=== PATIENT | male | born 1970 ===

== ENCOUNTER 2017-05-23 10:00 | Observation (INO) | payer BC, OTHER ==
[2017-05-23] MEDS ORDERED: TORAdol 30 mg Injection IV ONE (10:20)
[2017-05-23] MEDS ORDERED: VALIUM 10 MG/2 ML SYRINGE IV ONE ×2 (10:20→11:53)
[2017-05-23] MEDS ORDERED: DECADRON 10MG INJ. IV ONE (10:20)
[2017-05-23] MEDS ORDERED: TORAdol 30 mg Injection ONE (10:25)
[2017-05-23] MEDS ORDERED: VALIUM 10 MG/2 ML SYRINGE ONE ×2 (10:25→12:51)
--- NOTE | 2017-05-23 10:25 | ERPHSYRPT ---
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 Pt states he is having numbness in the RLE. Triage Nursing Assessment: Pt alert and oriented x3. skin pink warm and dry. afebrile. pt restless and appears to be in severe pain. no swelling or bruising noted to back Physician History: 47 y/o male comes to the ER in a wheelchair after lifting a heavy object at work just prior to arrival. Pt admits to having severe right lower back pain with severe stiffness. Pt describes the pain as sharp, constant, 10/10, with radiation down the right leg and pt has not taken any pain meds. Pt denies any fever, chills, leg weakness or bowel or urinary incontinence. Timing/Duration: today Method of Injury: bending Back Pain Location: lumbar spine, paraspinous muscles Back Pain Radiation: upper legs Severity of Pain-Max: severe Severity of Pain-Current: severe Modifying Factors: Improves With: nothing Allergies/Adverse Reactions: Penicillins Allergy (Verified 05/23/17 10:01) Home Medications: Hydrocodone Bit/Acetaminophen [[place] 5-325 Tablet] 1 each PO UD 05/23/17 [ History] Hx Tetanus, Diphtheria Vaccination/Date Given: Yes Hx Influenza Vaccination/Date Given: Yes Hx Pneumococcal Vaccination/Date Given: Yes - Review of Systems Constitutional: No Fever, No Chills Eyes: No Symptoms Ears, Nose, & Throat: No Symptoms Respiratory: No Cough, No Dyspnea Cardiac: No Chest Pain, No Edema, No Syncope Abdominal/Gastrointestinal: No Abdominal Pain, No Nausea, No Vomiting, No Diarrhea Genitourinary Symptoms: No Dysuria, No Incontinence, No Urgency Musculoskeletal: Back Pain, No Neck Pain Skin: No Symptoms, No Rash Neurological: No Dizziness, No Focal Weakness, No Sensory Changes Psychological: No Symptoms Endocrine: No Symptoms All Other Systems: Reviewed and Negative - Past Medical History Pertinent Past Medical History: Yes Cardiac History: Hypertension - Past Surgical History Past Surgical History: Yes Gastrointestinal: Hernia Repair Musculoskeletal: Orthopedic Surgery - Social History Smoking Status: Former smoker Exposure to second hand smoke: No Drug Use: none Patient Lives Alone: No - Nursing Vital Signs Nursing Vital Signs: Initial Vital Signs Temperature 98.2 F Pulse Rate 86 Respiratory Rate 16 Blood Pressure [Right Arm] 135/84 Pain Intensity 9 - Physical Exam General Appearance: no apparent distress, alert Eye Exam: PERRL/EOMI, eyes nml inspection Neck Exam: normal inspection, non-tender, supple, full range of motion, No meningismus, No midline tenderness Respiratory Exam: normal breath sounds, lungs clear, No respiratory distress Cardiovascular Exam: regular rate/rhythm, normal heart sounds Gastrointestinal Exam: soft, No tenderness, No mass Back Exam: decreased range of motion, muscle spasm, point tenderness (right paraspinal tenderness), No vertebral tenderness Extremity Exam: normal inspection, normal range of motion, No calf tenderness, No pedal edema Neurologic Exam: alert, oriented x 3, cooperative, staffing manager II-XII nml as tested, normal mood/affect, nml station & gait, sensation nml, No motor deficits Skin Exam: normal color, warm, dry, No rash SpO2: 98 Oxygen Delivery: Room Air - Course Nursing assessment & vital signs reviewed: Yes Ordered Tests: Active Orders 24 hr Category Date Time Status IV Insertion STAT Care 05/23/17 10:19 Active LUMBAR SPINE W/O [CT] Stat Exams 05/23/17 11:56 Completed Medication Summary Discontinued Medications Generic Name Dose Route Start Last Admin Trade Name Bob PRN Reason Stop Dose Admin Dexamethasone Sodium Phosphate 10 mg 05/23/17 10:20 05/23/17 10:31 Decadron 10mg Inj. IV 05/23/17 10:21 10 mg STAT ONE Administration Dexamethasone Sodium Phosphate Confirm 05/23/17 10:26 Decadron 10mg Inj. Administered 05/23/17 10:27 Dose 10 mg .ROUTE .STK-MED ONE Diazepam 5 mg 05/23/17 10:20 05/23/17 10:32 Valium 10 Mg/2 Ml Syringe IV 05/23/17 10:21 5 mg STAT ONE Administration Diazepam Confirm 05/23/17 10:25 Valium 10 Mg/2 Ml Syringe Administered 05/23/17 10:26 Dose 10 mg .ROUTE .STK-MED ONE Diazepam 5 mg 05/23/17 11:53 05/23/17 12:52 Valium 10 Mg/2 Ml Syringe IV 05/23/17 11:54 5 mg STAT ONE Administration Diazepam Confirm 05/23/17 12:51 Valium 10 Mg/2 Ml Syringe Administered 05/23/17 12:52 Dose 10 mg .ROUTE .STK-MED ONE Hydromorphone HCl 1 mg 05/23/17 11:08 05/23/17 11:14 Hydromorphone 1 Mg/Ml Ampule IV 05/23/17 11:09 1 mg STAT ONE Administration Hydromorphone HCl Confirm 05/23/17 11:10 Hydromorphone 1 Mg/Ml Ampule Administered 05/23/17 11:11 Dose 1 mg .ROUTE .STK-MED ONE Hydromorphone HCl 1 mg 05/23/17 11:53 05/23/17 12:05 Hydromorphone 1 Mg/Ml Ampule IV 05/23/17 11:54 1 mg STAT ONE Administration Hydromorphone HCl Confirm 05/23/17 12:05 Hydromorphone 1 Mg/Ml Ampule Administered 05/23/17 12:06 Dose 1 mg .ROUTE .STK-MED ONE Ketorolac Tromethamine 30 mg 05/23/17 10:20 05/23/17 10:31 Toradol 30 Mg Injection IV 05/23/17 10:21 30 mg STAT ONE Administration Ketorolac Tromethamine Confirm 05/23/17 10:25 Toradol 30 Mg Injection Administered 05/23/17 10:26 Dose 30 mg .ROUTE .STK-MED ONE - Progress Progress: pain not gone completely Progress Note: 05/23/17 13:[address] scan lumbar spine shows an L5 nerve impingement. Pt has been giving dilaudid 1mg IV X 2, valium 5mg IV X 2, decadron and toradol with minimal relief. Pt has been unable to ambulate even with crutches. Pt has been admitted for pain control to Dr Mcneill under the care of Dr Cevallos. - Departure Time of Disposition: 13:59 Departure Disposition: In-patient Admission Clinical Impression: Back pain Qualifiers: Back pain location: low back pain Chronicity: acute Back pain laterality: midline Sciatica presence: without sciatica Qualified Code(s): M54.5 - Low back pain Condition: Fair Critical Care Time: No
[2017-05-23] MEDS ORDERED: DECADRON 10MG INJ. ONE (10:26)
[2017-05-23] MEDS ORDERED: Hydromorphone 1 mg/ml Ampule IV ONE ×2 (11:08→11:53)
[2017-05-23] MEDS ORDERED: Hydromorphone 1 mg/ml Ampule ONE ×2 (11:10→12:05)
--- NOTE | 2017-05-23 12:42 | XRAY ---
Indication: Severe low back pain after lifting injury. Multiple contiguous axial images obtained through the lumbar spine without contrast. Sagittal and coronal reformatted images obtained. Comparison: None Axial images negative for acute fracture, suspicious bony lesions, or spinal canal stenosis. Superior L4 Schmorl node. Minimal annular disc bulge at L2-L4 levels. Mild broad-based disc bulge at the L4-S1 levels. There is bilateral L5 spondylolysis. Sagittal and coronal reformatted images demonstrates minimal multilevel disc space narrowing and 3 mm L5 spondylolisthesis. Subsequent bilateral L5-S1 foraminal stenosis and exiting L5 nerve root impingement. No acute compression fracture. Urinary bladder is markedly distended. Remaining visualized noncontrasted soft tissues unremarkable. Impression: 1. Multilevel degenerative disc disease better evaluated with outpatient MRI. 2. Bilateral L5 spondylolysis with minimal grade 1 spondylolisthesis. There is resulting bilateral foraminal stenosis and bilateral L5 nerve root impingement. 3. Incidental L4 Schmorl node. 4. Markedly distended urinary bladder. Rule out outlet obstruction versus neurogenic bladder. CTDI 118.12
[2017-05-23] MEDS ORDERED: DILAUDID 2 MG INJECTION IV PRN (14:00)
[2017-05-23] MEDS ORDERED: VALIUM 10 MG/2 ML SYRINGE IV PRN (17:13)
[2017-05-23] MEDS: DECADRON 10MG INJ. IV SCH ×2 (17:47→23:27)
[2017-05-23] MEDS: TORAdol 30 mg Injection IV PRN (20:10)
[2017-05-24 05:16] VITALS: O2SAT 96
[2017-05-24] MEDS: DECADRON 10MG INJ. IV SCH (08:03)
[2017-05-24] MEDS: TORAdol 30 mg Injection IV PRN (08:03)
[2017-05-24 08:35] VITALS: BP 132/86; PULSE 86
--- NOTE | 2017-05-27 16:18 | SSS ---
DISCHARGE DIAGNOSIS: 1. INTRACTABLE BACK PAIN - RESOLVED. 2. DEGENERATIVE DISC DISEASE (LUMBAR SPINE). 3. BILATERAL L5 NERVE ROOT IMPINGEMENT. HOSPITAL COURSE: Mr. Sams is a 47 y/o male with past medical history of reportedly only significant for hypertension. 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 Patient presented to Emergency Room with intractable back pain radiating down to his right leg with right leg numbness. Also, he had reported severe stiffness in his lower back. He had reported pain to be sharp, constant, and over 10. He denied any bladder or bowel complaints nor any history of fever. Upon initial evaluation in Emergency Room, he was noted to have BP of 135/84, heart rate 86, respiratory rate of 16, temperature of 98.2. After initial work-up, he was treated with Decadron 10 mg IV X 1, diazepam 5 mg IV X 1, diazepam 10 mg IV X 1, Dilaudid 1 mg IV X 2, Toradol 30 mg IV X 1. He underwent CT scan of lumbosacral spine and was then admitted to medical floor for further monitoring and management. Since admission, his pain has improved. At the time of this evaluation, he is alert, awake, and comfortable. States his back pain has improved. He has been able to ambulate in his room. He states that he still has minimal numbness in right leg. However, overall, seems much better than yesterday. He denies any bladder or bowel complaints. He feels better and is wishing to be discharged today. PAST MEDICAL HISTORY: As noted above. Patient states he had similar, but mildly back pain last year. However, that had completely resolved. PAST SURGICAL HISTORY: History of hernia repair. Patient denies any back surgeries. HOME MEDICATIONS: [place] 5/325. ALLERGIES: PENICILLIN. SOCIAL HISTORY: Patient is a former smoker. Denies illicit drug use. Patient lives in [place] and is currently here for work. He states his other co-workers have left today and he will be renting a car to travel back to his home. FAMILY HISTORY: Noncontributory. REVIEW OF SYSTEMS: Denies headache or dizziness. Denies fever or fatigue. Denied chest pain, shortness of breath, or cough. Denies abdominal pain or nausea or vomiting. Denies constipation or diarrhea. Denies urinary complaints. Complains of mild numbness in right leg which has improved from yesterday. Complains of low back pain which has improved. PHYSICAL EXAMINATION: Middle-aged male lying comfortably in bed. Not in acute distress. VITALS: BP 132/86, heart rate 86, respiratory rate 16, temperature 97.8, O2 saturations 96% on room air. HEENT: Normocephalic. No pallor or icterus noted. NECK: No JVD present. CVS: S1 and S2 present. RESPIRATORY: Breath sounds bilaterally diminished and clear to auscultation. ABDOMEN: Obese, soft, nontender. NEURO: He is alert and oriented X 3. Evaluation of motor strength in bilateral lower extremities reveals grossly intact motor strength. EXTREMITIES: Reveals no edema on bilateral lower extremities. BACK: Examination of lower back reveals mild tenderness to percussion in lumbar and paraspinal areas. Mild lumbar muscle spasm is present bilaterally. Range of movement of lower back is mildly painful. LABORATORY DATA: There were no new labs. CT scan of lumbar spine as noted. ASSESSMENT: OUTLINE IN DISCHARGE DIAGNOSIS. PLAN: Patient was admitted with intractable back pain. He was treated with analgesics/muscle relaxants. He has significantly improved. He remains hemodynamically stable. His back pain has improved. He has no focal weakness. He has ambulated without difficulty. He denies any bladder or bowel issues. He is wishing to be discharged today. I discussed with patient in great detail regarding his clinical condition, work-up results from CT scan yesterday, and need for obtaining MRI. However, patient states that he lives in [place] and will need to travel back to his home in the next 1 hour or so. He states that he has his rental car in [place] to be able to arrange. He states that overall his pain is better and he would be able to go today. He states he is going to stay off his work next week. Patient is insisting on leaving in the next hour or so, so he can get his transportation arrangements taken care of. He declines obtaining any additional work-up/treatment here. Overall, he has clinically improved and ambulated without difficulty. Will discharge patient on PO analgesics/muscle relaxants. I discussed with patient regarding need for MRI and possible neurosurgical referral. However, patient states that he will follow-up with his regular physician in [place] early next week so he can get those arranged. I have advised patient to avoid heavy activity. I have advised him to closely watch for any signs or symptoms including, but not limited to, worsening of back pain, any weakness in extremities, any worsening of numbness, any bladder or bowel symptoms and report to Emergency Room locally immediately if any of those are to appear. I again stressed with patient that it is utmost important that he follow-up with his regular physician as soon as he reaches his hometown and get additional testing/MRI/possible neurosurgery appointment, arrange JOCE. Patient's clinical condition, work-up results, and plan of management including plan for discharge was discussed with him. He seems to be in understanding and agreement. Please refer to discharge medication list from 05/24/17 for details of medications on discharge. Please refer to patient's chart, labs, and diagnostic work-up results for details. Plan of care was discussed with patient's nurse, Yajaira, and director of casework, Caroline Rain.
== END 2017-05-24 11:25 | disposition home or self-care (01) ==
LOC: ED 10:00 → MED SURG 14:57
PROVIDERS: ADMIT General Practice; ATTEND General Practice
DX: M54.5 Low back pain (principal); S34.21XA Injury of nerve root of lumbar spine, initial encounter; X50.0XXA Overexertion from strenuous movement or load, initial encounter; Y93.H3 Activity, building and construction; M51.36 Other intervertebral disc degeneration, lumbar region
CPT/HCPCS: 36000; 72131; 96374; 96375; 99284; G0378; J1100; J1170; J1885; J3360